=== PATIENT | male | born 1995 ===

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

== ENCOUNTER 2017-01-02 23:36 | Emergency (ER) | payer OTHER ==
[2017-01-02 23:55] VITALS: O2SAT 100
--- NOTE | 2017-01-03 01:11 | ED PDOC ---
HPI: Psych/Substance Abuse Time Seen by Provider: 01/03/17 00:35 Chief Complaint (Nursing): Anxiety Chief Complaint (Provider): Depression History Per: Patient History/Exam Limitations: no limitations Current Symptoms Are (Timing): Still Present Suicide/Self Injury Attempted (Context): None Modifying Factor(s): None Associated Symptoms: Depression Additional Complaint(s): 21 year old male presents to ED with complaints of depression and states that he has had thoughts about "giving up" for the past year. Notes that he does not feel interested in things that previously interested him. Confirms he underwent a psychiatric evaluation when he was younger, but no formal diagnosis was given. (-) suicidal/homicidal ideation. PCP: Shaik Maria Past Medical History Reviewed: Historical Data, Nursing Documentation, Vital Signs Vital Signs: Last Vital Signs Temp 98.2 F 01/02/17 23:53 Pulse 79 01/02/17 23:53 Resp 16 01/02/17 23:53 BP 130/86 01/02/17 23:53 Pulse Ox 100 01/02/17 23:53 - Medical History PMH: No Chronic Diseases - Surgical History Surgical History: No Surg Hx - Family History Family History: States: Unknown Family Hx - Home Medications Home Medications: Ambulatory Orders Medication Instructions Recorded Bismuth Subsalicylate [Pepto 262 mg PO Q4H PRN #20 ctb 12/31/16 Bismol] Famotidine [Pepcid] 20 mg PO BID #28 tab 12/31/16 Ondansetron [Zofran] 4 mg PO Q8H #9 tab 12/31/16 - Allergies Allergies/Adverse Reactions: Allergies Allergy/AdvReac Type Severity Reaction Status Date / Time No Known Allergies Allergy Verified 12/31/16 15:34 Review of Systems ROS Statement: Except As Marked, All Systems Reviewed And Found Negative Psych: Positive for: Depression. Negative for: Suicidal ideation Physical Exam - Physical Exam Appears: Positive for: Well, Non-toxic, No Acute Distress Head Exam: Positive for: ATRAUMATIC, NORMAL INSPECTION, NORMOCEPHALIC Skin: Positive for: Normal Color, Warm, Dry Eye Exam: Positive for: Normal appearance ENT: Positive for: Normal ENT Inspection Neck: Positive for: Normal, Painless ROM Cardiovascular/Chest: Positive for: Regular Rate, Rhythm. Negative for: Bradycardia Respiratory: Positive for: Normal Breath Sounds. Negative for: Respiratory Distress Gastrointestinal/Abdominal: Positive for: Normal Exam, Soft. Negative for: Tenderness Extremity: Negative for: Deformity Neurologic/Psych: Positive for: Alert, Oriented, Mood/Affect (flattened affect) - ECG O2 Sat by Pulse Oximetry: 100 (RA) Pulse Ox Interpretation: Normal Medical Decision Making Medical Decision Makin Initial impression: depression Initial plan: * Crisis eval 0300 Patient cleared by crisis and is deemed stable for discharge home. Dx: depression Scribe Attestation: Documented by Latasha Burciaga acting as a scribe for Yared Calix MD. Scribe Attestation: All medical record entries made by the Scribe were at my direction and personally dictated by me. I have reviewed the chart and agree that the record accurately reflects my personal performance of the history, physical exam, medical decision making, and the department course for this patient. I have also personally directed, reviewed, and agree with the discharge instructions and disposition. Disposition - Clinical Impression Clinical Impression: Depression - Disposition Referrals: Shaik Maria MD [Primary Care Provider] - Disposition: Routine/Home Disposition Time: 03:00 Condition: STABLE Instructions: Depression (ED), Suicide Prevention for Adults (GEN) Forms: [employer] (Italian)
[2017-01-03 03:58] VITALS: BP 126/69; PULSE 83; RESP 17; TEMP 98.1
== END 2017-01-03 03:10 | disposition home or self-care (01) ==
LOC: H.ER 23:36
DX: F41.9 Anxiety disorder, unspecified (principal); F32.9 Major depressive disorder, single episode, unspecified

== ENCOUNTER 2017-09-19 20:34 | Emergency (ER) | payer MEDICAID, OTHER ==
--- NOTE | 2017-09-19 21:06 | ED PDOC ---
HPI: Abdomen Time Seen by Provider: 09/19/17 20:53 Chief Complaint (Nursing): Abdominal Pain Chief Complaint (Provider): abdominal pain History Per: Patient History/Exam Limitations: no limitations Onset/Duration Of Symptoms: Days (3) Current Symptoms Are (Timing): Still Present Location Of Pain/Discomfort: Diffuse Quality Of Discomfort: Cramping, "Pain" Associated Symptoms: Nausea, Vomiting, Diarrhea Additional Complaint(s): 22 y/o male presents for evaluation of lower abdominal pain and bloating x 4 days. Associated multiple episodes of nonbloody diarrhea and three episodes of vomiting. Denies fever, chest pain, shortness of breath, urinary symptoms, recent travel, sick contacts. Past Medical History Reviewed: Historical Data, Nursing Documentation, Vital Signs Vital Signs: Last Vital Signs Temp 98.2 F 09/19/17 20:44 Pulse 78 09/19/17 20:44 Resp 14 09/19/17 20:44 BP 117/63 09/19/17 20:44 Pulse Ox 100 09/19/17 21:07 - Medical History PMH: No Chronic Diseases Denies: Diabetes, Hepatitis, HIV, HTN, Seizures, Sexually Transmitted Disease - Surgical History Surgical History: No Surg Hx - Family History Family History: States: Unknown Family Hx - Home Medications Home Medications: Ambulatory Orders Medication Instructions Recorded Bismuth Subsalicylate [Pepto 262 mg PO Q4H PRN #20 ctb 12/31/16 Bismol] Famotidine [Pepcid] 20 mg PO BID #28 tab 12/31/16 Ondansetron [Zofran] 4 mg PO Q8H #9 tab 12/31/16 Ciprofloxacin HCl [Cipro] 500 mg PO BID #19 tab 09/20/17 Dicyclomine [Bentyl] 20 mg PO TID PRN #15 tab 09/20/17 Metronidazole [Flagyl] 500 mg PO TID #29 tab 09/20/17 Ondansetron ODT [Zofran ODT] 4 mg PO Q8 PRN #10 odt 09/20/17 - Allergies Allergies/Adverse Reactions: Allergies Allergy/AdvReac Type Severity Reaction Status Date / Time No Known Allergies Allergy Verified 12/31/16 15:34 Review of Systems ROS Statement: Except As Marked, All Systems Reviewed And Found Negative Gastrointestinal: Positive for: Nausea, Vomiting, Abdominal Pain, Diarrhea Physical Exam - Reviewed Nursing Documentation Reviewed: Yes Vital Signs Reviewed: Yes - Physical Exam Appears: Positive for: Well, Non-toxic, No Acute Distress Head Exam: Positive for: ATRAUMATIC, NORMAL INSPECTION, NORMOCEPHALIC Skin: Positive for: Normal Color Eye Exam: Positive for: Normal appearance ENT: Positive for: Normal ENT Inspection Cardiovascular/Chest: Positive for: Regular Rate, Rhythm Respiratory: Positive for: Normal Breath Sounds Gastrointestinal/Abdominal: Positive for: Bowel Sounds (hyperactive), Soft, Tenderness (rlq, suprapibic, llq) Back: Positive for: Normal Inspection Extremity: Positive for: Normal ROM Neurologic/Psych: Positive for: Alert, Oriented - Laboratory Results Result Diagrams: 09/19/17 21:35 09/19/17 21:35 - ECG O2 Sat by Pulse Oximetry: 100 - Progress ED Course And Treament: labs, urine, CT abd/pelvis EXAM: CT Abdomen and Pelvis With Intravenous Contrast EXAM DATE/TIME: 09/19/2017 9:02 PM CLINICAL HISTORY: 22 years old, male; Pain and signs and symptoms; Vomiting and other: Diarrhea; Abdominal pain; Localized; Lower; Additional info: Lower abd pain, vomiting, diarrhea TECHNIQUE: Axial computed tomography images of the abdomen and pelvis with intravenous contrast. All CT scans at this facility use one or more dose reduction techniques, viz.: automated exposure control; ma/kV adjustment per patient size (including targeted exams where dose is matched to indication; i.e. head); or iterative reconstruction technique. CONTRAST: 90 mL of [id number] administered intravenously. COMPARISON: No relevant prior studies available. FINDINGS: Lung bases: Unremarkable. No mass. No consolidation. ABDOMEN: Liver: Unremarkable. No mass. Gallbladder and bile ducts: Unremarkable. No calcified stones. No ductal dilation. Pancreas: Unremarkable. No mass. No ductal dilation. Spleen: Unremarkable. No splenomegaly. Adrenals: Unremarkable. No mass. Kidneys and ureters: Unremarkable. No solid mass. No hydronephrosis. Stomach and bowel: Probable mild left and sigmoid colon wall thickening consistent with inflammatory or infectious colitis. No obstruction. PELVIS: Appendix: The appendix is normal. Bladder: Unremarkable. No mass. Reproductive: Unremarkable as visualized. ABDOMEN and PELVIS: Intraperitoneal space: Trace free fluid in the pelvis. No free air. Bones/joints: No acute fracture. No dislocation. Soft tissues: Unremarkable. Vasculature: Unremarkable. No abdominal aortic aneurysm. Lymph nodes: Unremarkable. No enlarged lymph nodes. IMPRESSION: Probable mild left and sigmoid colon wall thickening consistent with inflammatory or infectious colitis. On re-eval, patient states he is feeling better; tolerated PO Patient educated on findings, discharged with rx Cipro (dose given in ED), flagyl (dose given in ED), zofran, bentyl Advised fluids, bland diet Follow up GI Return precautions given Disposition - Clinical Impression Clinical Impression: Colitis - Patient ED Disposition Is Patient to be Admitted: No Counseled Patient/Family Regarding: Studies Performed, Diagnosis, Need For Followup, Rx Given - Disposition Referrals: Aurea [facility] MD [Medical Doctor] - Disposition: Routine/Home Disposition Time: 00:06 Condition: IMPROVED Prescriptions: Ciprofloxacin HCl [Cipro] 500 mg PO BID #19 tab Dicyclomine [Bentyl] 20 mg PO TID PRN #15 tab PRN Reason: Pain, Mild (1-3) Metronidazole [Flagyl] 500 mg PO TID #29 tab Ondansetron ODT [Zofran ODT] 4 mg PO Q8 PRN #10 odt PRN Reason: Nausea/Vomiting Instructions: Diarrhea in Adolescents and Adults, Acute Abdomen (Belly Pain) Forms: [employer] [facility] (Kazakh)
[2017-09-19] MEDS ORDERED: Iohexol 240 (50 ml) ONE (21:18)
[2017-09-19] MEDS: Iohexol 240 (50 ml) PO ONE (21:24)
[2017-09-19] MEDS: Sodium Chloride 0.9% 1,000 ML IV STA (21:31)
[2017-09-19 21:44] LABS: BASO # 0.1 K/uL (0.0-0.2); EOS % 0.5 % (0.0-4.0); HEMOGLOBIN 15.6 g/dL (12.0-18.0); LYMPH % 38.1 % (20.0-40.0); MEAN CELL VOLUME 88.1 fl (80.0-94.0); MEAN CORPUSCULAR HEMOGLOBIN 30.2 pg (27.0-31.0); MEAN CORPUSCULAR HGB CONC 34.3 g/dL (33.0-37.0); MEAN PLATELET VOLUME 7.2 fl (7.2-11.7); MONO # 0.5 K/uL (0.0-0.8); MONO % 8.7 % (0.0-10.0); NEUT # 2.7 K/uL (1.8-7.0); NEUT % 51.7 % (50.0-75.0); NRBC % 0.2 % (0.0-0.0); RBC 5.19 Mil/uL (4.40-5.90); RED CELL DISTRIBUTION WIDTH 13.2 % (11.5-14.5); WHITE BLOOD COUNT 5.1 K/uL (4.8-10.8)
[2017-09-19 21:57] LABS: ALB/GLOB RATIO 1.4 (1.0-2.1); ALBUMIN 4.8 g/dL (3.5-5.0); ALT/SGPT 29 U/L (21-72); AST/SGOT 32 U/L (17-59); BLOOD UREA NITROGEN 10 mg/dl (9-20); CALCIUM 9.8 mg/dL (8.4-10.2); GFR AFRICAN-AMERICAN > 60; GFR NON-AFRICAN AMERICAN > 60; LIPASE 42 U/L (23-300)
[2017-09-19] MEDS ORDERED: Sodium Chloride 0.9% 50 ML IV ONE (22:25)
[2017-09-19] MEDS ORDERED: Iohexol 300 100 ML IJ ONE (22:25)
[2017-09-19 22:57] LABS: SQUAMOUS EPITHIAL < 1 /hpf (0-5); URINE BILIRUBIN NEGATIVE (NEGATIVE); URINE BLOOD NEGATIVE (NEGATIVE); URINE CLARITY CLEAR (Clear); URINE COLOR YELLOW (YELLOW); URINE GLUCOSE (UA) NEG (Normal); URINE LEUKOCYTE ESTERASE NEG Leu/uL (Negative); URINE PROTEIN NEGATIVE (NEGATIVE); URINE UROBILINOGEN 0.2-1.0 mg/dL (0.2-1.0)
[2017-09-20 00:19] VITALS: BP 113/73; PULSE 70; RESP 18; TEMP 99.4; O2SAT 98
--- NOTE | 2017-09-20 10:47 | CT ---
PROCEDURE: CT Abdomen and Pelvis with contrast HISTORY: COMPARISON: None. TECHNIQUE: CT scan of the abdomen and pelvis was performed after administration of intravenous contrast. Oral contrast was administered. Coronal and sagittal reformatted images were obtained. Contrast dose: 90 mL Omnipaque 300 Radiation dose: Total exam DLP = 244.76 mGy-cm. This CT exam was performed using one or more of the following dose reduction techniques: Automated exposure control, adjustment of the mA and/or kV according to patient size, and/or use of iterative reconstruction technique. FINDINGS: LOWER THORAX: The visualized lungs are clear. LIVER: Normal in size with homogeneous enhancement. No gross lesion or ductal dilatation. GALLBLADDER AND BILE DUCTS: No calcified gallstones. PANCREAS: Normal in size with homogeneous enhancement. No gross lesion or ductal dilatation. SPLEEN: Normal in size and appearance. ADRENALS: No discrete nodule. KIDNEYS AND URETERS: Normal in size with homogeneous enhancement. No hydronephrosis. No solid mass. VASCULATURE: No aortic aneurysm. BOWEL: The small bowel loops are normal in caliber. There is apparent mild circumferential mural thickening in the descending and sigmoid colon without pericolonic inflammatory changes. No evidence of bowel obstruction. APPENDIX: Normal appendix. PERITONEUM: No free fluid. No free air. LYMPH NODES: No enlarged lymph nodes. BLADDER: Grossly normal in appearance. REPRODUCTIVE: The prostate gland is normal in size. BONES: No acute fracture. Within normal limits for the patient's age. OTHER FINDINGS: None. IMPRESSION: Apparent mild mural thickening in the descending and sigmoid colon is nonspecific but in the appropriate clinical setting could represent nonspecific infectious/ inflammatory colitis. No evidence of bowel obstruction A preliminary report was provided by [employer].
== END 2017-09-20 00:19 | disposition home or self-care (01) ==
LOC: H.ER 20:34
DX: K52.9 Noninfective gastroenteritis and colitis, unspecified (principal)
CPT/HCPCS: 74177; 80053; 81003; 83690; 85025; 96360; 99283; J7030; Q9966; Q9967

== ENCOUNTER 2018-07-18 20:14 | Emergency (ER) | payer OTHER ==
[2018-07-18 21:25] VITALS: BMI 23.9
[2018-07-18 21:28] VITALS: BP 113/57; PULSE 89; RESP 18; TEMP 98.5; O2SAT 98
[2018-07-18] MEDS ORDERED: Lidocaine Hydrochloride 1% 10 ML ONE (21:56)
[2018-07-18] MEDS ORDERED: Tdap Vaccine 0.5 ml Vial (10-64 yrs) IM ONE (22:40)
--- NOTE | 2018-07-18 22:40 | ED PDOC ---
HPI: Skin/Bite Injury Time Seen by Provider: 07/18/18 22:00 Chief Complaint (Nursing): Abnormal Skin Integrity Chief Complaint (Provider): left eye brow laceration History Per: Patient History/Exam Limitations: no limitations Onset/Duration Of Symptoms: Hrs Current Symptoms Are (Timing): Still Present Location Of Injury: Left: Face (eyebrow ) Severity: None Pain Scale Rating Of: 0 Additional History Per: Patient Additional Complaint(s): 22 y/o male presents with left eyebrow laceration 2 hours [employer]. Patient reports he collided head to head with his friend while playing basketball. Patient denies loc, nausea, vomiting, change in vision or vision changes. Tetanus status unknown. Past Medical History Reviewed: Historical Data, Nursing Documentation, Vital Signs Vital Signs: Last Vital Signs Temp 98.5 F 07/18/18 21:25 Pulse 89 07/18/18 21:25 Resp 18 07/18/18 21:25 BP 113/57 L 07/18/18 21:25 Pulse Ox 98 07/18/18 21:25 LORENZA Report Viewed: No - Medical History PMH: No Chronic Diseases Denies: Diabetes, Hepatitis, HIV, HTN, Seizures, Sexually Transmitted Disease - Surgical History Surgical History: No Surg Hx - Family History Family History: States: Unknown Family Hx - Social History Alcohol: None Drugs: Denies - Home Medications Home Medications: Ambulatory Orders Medication Instructions Recorded Bismuth Subsalicylate [Pepto 262 mg PO Q4H PRN #20 ctb 12/31/16 Bismol] Famotidine [Pepcid] 20 mg PO BID #28 tab 12/31/16 Ondansetron [Zofran] 4 mg PO Q8H #9 tab 12/31/16 Ciprofloxacin HCl [Cipro] 500 mg PO BID #19 tab 09/20/17 Dicyclomine [Bentyl] 20 mg PO TID PRN #15 tab 09/20/17 Metronidazole [Flagyl] 500 mg PO TID #29 tab 09/20/17 Ondansetron ODT [Zofran ODT] 4 mg PO Q8 PRN #10 odt 09/20/17 - Allergies Allergies/Adverse Reactions: Allergies Allergy/AdvReac Type Severity Reaction Status Date / Time No Known Allergies Allergy Verified 07/18/18 21:25 Review of Systems ROS Statement: Except As Marked, All Systems Reviewed And Found Negative Constitutional: Negative for: Fever, Chills, Sweats, Weakness Eyes: Negative for: Pain, Vision Change, Conjunctivae Inflammation, Eyelid Inflammation, Redness Skin: Positive for: Other (laceration to left eyebrow ) Neurological: Negative for: Weakness, Confusion, Dizziness Physical Exam - Reviewed Nursing Documentation Reviewed: Yes Vital Signs Reviewed: Yes - Physical Exam Appears: Positive for: Well, Non-toxic, No Acute Distress Head Exam: Positive for: ATRAUMATIC, NORMAL INSPECTION, NORMOCEPHALIC Skin: Positive for: Normal Color (tensile laceration to left eyebrow measuring 1.5 cm. about 0.3cm deep, bleeding controlled. linear clean edges. ), Warm Eye Exam: Positive for: EOMI, Normal appearance, PERRL ENT: Positive for: Normal ENT Inspection Neck: Positive for: Normal, Painless ROM Cardiovascular/Chest: Positive for: Regular Rate, Rhythm Respiratory: Positive for: CNT, Normal Breath Sounds Gastrointestinal/Abdominal: Positive for: Normal Exam, Soft Back: Positive for: Normal Inspection Extremity: Positive for: Normal ROM Neurological/Psych: Positive for: Awake, Alert, Normal Tone, Oriented - ECG O2 Sat by Pulse Oximetry: 98 Medical Decision Making Medical Decision Making: Tetanus 1 unit IM Laceration Repair 22:20:left eyebrow laceration irrigated with 50cc of normal saline, lido 1%, 1.5 cc used for anasthetic, repaired with 0.5 prolene 3 sutures. well approximated. Patient tolerated procedure well. bacitrin applied. instructed patient to apply for 2-3 days bid. 22:25: Patient stable for discharge home. Patient to return to ED in 5-7 days for suture removal. Pt educated on wound care. Patient verbalizes understanding. Return to ed precautions given. Disposition - Clinical Impression Clinical Impression: Laceration - Patient ED Disposition Is Patient to be Admitted: No Counseled Patient/Family Regarding: Diagnosis, Need For Followup, Rx Given - Disposition Disposition: Routine/Home Disposition Time: 20:39 Condition: GOOD Additional Instructions: Return to ED in 5-7 days for suture removal. Instructions: Laceration Repair With Stitches (DC) - POA Present On Arrival: None
== END 2018-07-18 23:06 | disposition home or self-care (01) ==
LOC: H.ER 20:14
DX: S01.81XA Laceration without foreign body of other part of head, initial encounter (principal); W22.8XXA Striking against or struck by other objects, initial encounter; Y93.67 Activity, basketball

== ENCOUNTER 2018-08-13 21:21 | Emergency (ER) | payer MEDICAID, OTHER ==
[2018-08-13 21:22] VITALS: BMI 23.9
[2018-08-13 23:43] VITALS: BP 100/65; PULSE 88; RESP 16; TEMP 98.3; O2SAT 97
--- NOTE | 2018-08-14 04:11 | ED PDOC ---
Upper Extremity Pain/Injury Time Seen by Provider: 08/14/18 04:07 Chief Complaint (Nursing): Finger,Hand,&Wrist Chief Complaint (Provider): right hand 4th digit injury History Per: Patient History/Exam Limitations: no limitations Onset/Duration Of Symptoms: Hrs Current Symptoms Are (Timing): Still Present Hands/Wrist (Pic): 1 - Tenderness, Swelling Additional Complaint(s): 23 y/o male presents for evaluation of injury to right hand 4th digit sustained 6 hours ago. Patient states he was playing basketball and after he finished he noticed the tip of his 4th digit of right hand was "bent downward". Patient reports being unable to extend it. Denies numbness/weakness right upper extremity, limitation of movement Past Medical History Reviewed: Historical Data, Nursing Documentation, Vital Signs Vital Signs: Last Vital Signs Temp 98.3 F 08/13/18 23:39 Pulse 88 08/13/18 23:39 Resp 16 08/13/18 23:39 BP 100/65 08/13/18 23:39 Pulse Ox 97 08/13/18 23:39 Primary Care Provider: Shaik Maria - Medical History PMH: No Chronic Diseases Denies: Diabetes, Hepatitis, HIV, HTN, Seizures, Sexually Transmitted Disease - Surgical History Surgical History: No Surg Hx - Family History Family History: States: Unknown Family Hx - Living Arrangements Living Arrangements: With Family - Home Medications Home Medications: Ambulatory Orders Medication Instructions Recorded Bismuth Subsalicylate [Pepto 262 mg PO Q4H PRN #20 ctb 12/31/16 Bismol] Famotidine [Pepcid] 20 mg PO BID #28 tab 12/31/16 Ondansetron [Zofran] 4 mg PO Q8H #9 tab 12/31/16 Ciprofloxacin HCl [Cipro] 500 mg PO BID #19 tab 09/20/17 Dicyclomine [Bentyl] 20 mg PO TID PRN #15 tab 09/20/17 Metronidazole [Flagyl] 500 mg PO TID #29 tab 09/20/17 Ondansetron ODT [Zofran ODT] 4 mg PO Q8 PRN #10 odt 09/20/17 - Allergies Allergies/Adverse Reactions: Allergies Allergy/AdvReac Type Severity Reaction Status Date / Time No Known Allergies Allergy Verified 08/13/18 23:39 Review of Systems ROS Statement: Except As Marked, All Systems Reviewed And Found Negative Musculoskeletal: Positive for: Hand Pain (right hand 4th digit) Physical Exam - Reviewed Nursing Documentation Reviewed: Yes Vital Signs Reviewed: Yes - Physical Exam Appears: Positive for: Well, Non-toxic, No Acute Distress Pulses-Radial (L): 2+ Pulses-Radial (R): 2+ Extremity: Positive for: Capillary Refill (<3 sec b/l UE), Deformity (right hand 4th digit DIP in flexion; unable to extend. + local edema, tenderness. Distal NV intact. ) Neurological/Psych: Positive for: Awake, Alert, Age Appropriate - ECG O2 Sat by Pulse Oximetry: 97 - Other Rad xray right hand 4th digit X-Ray: Viewed By Me X-Ray Interpretation: no acute findings - Progress ED Course And Treament: -xray right hand 4th digit -ice application Patient educated on findings, finger splint applied Advised RICE, NSAIDs, follow up hand specialist Return precautions given Disposition - Clinical Impression Clinical Impression: Mallet finger of right hand - Patient ED Disposition Is Patient to be Admitted: No Counseled Patient/Family Regarding: Studies Performed, Diagnosis, Need For Followup - Disposition Referrals: Shaik Maria MD [Primary Care Provider] - Sarah Phipps MD [Medical Doctor] - Disposition: Routine/Home Disposition Time: 03:30 Condition: STABLE
--- NOTE | 2018-08-14 14:28 | RAD ---
Date of service: 08/14/2018 PROCEDURE: Right ring finger radiographs. HISTORY: None provided. COMPARISON: None. TECHNIQUE: AP radiograph of the right hand, as well as spot oblique and lateral images of ring finger were obtained. 3 views obtained. FINDINGS: RIGHT RING FINGER: Normal right ring finger, without fracture or focal lesion. Remainder of the right hand (as seen on the AP view) grossly unremarkable. JOINTS: Normal. SOFT TISSUES: Normal. OTHER FINDINGS: None. IMPRESSION: Normal right ring finger radiographs.
== END 2018-08-14 04:12 | disposition home or self-care (01) ==
LOC: H.ER 21:21
DX: M20.011 Mallet finger of right finger(s) (principal)